=== PATIENT | female | born 1930 | race Caucasian/White ===

== ENCOUNTER 2016-04-16 20:04 | Emergency (ER) | payer MEDICARE ==
[~2016-04-16] VITALS: Ht 157.5 cm; Wt 168.0 kg
[2016-04-16] MEDS ORDERED: fentaNYL 100 MCG/2 ML VIAL IM ONE ×2 (20:20→22:20)
[2016-04-16] MEDS ORDERED: ED- HYDROcodone/ACETAMINOPHEN 5MG/325MG (NORCO) 6 TABLETS/BTL PO ONE (21:45)
--- NOTE | 2016-04-16 22:30 | NUR ---
ATTEMPTED TO DC PT AFTER SLING APPLICATION. PT C/O LEFT LEG CRAMPING ANF RT ARM PAIN. PT TOOK ONE NORCO FROM TOGO BOTTLE. PT REQUESTING SOMETHING MORE FOR PAIN RELIEF BEFORE DC. TALKED WITH PT. PLAN IS TO GIVE ANOTHER IM ANALGESIC.
--- NOTE | 2016-04-16 22:37 | NUR ---
PT AMBULATE FROM RM 7 TO TREATMENT ROOM TO SIT IN CHAIR. IM INJECTION GIVEN. FRIEND SITTING WITH PT.
--- NOTE | 2016-04-16 23:00 | NUR ---
PT FELT READY FOR DC. PT AMBULATED TO AMBULANCE BAY AND GOT INTO CAR WITHOUT DIFFICULTY. FRIENDS WILL FOLLOW PT AND HOME AND HELP GET HER INTO THE HOUSE. PT REPORTED FEELING BETTER, AND NO C/O LEG SPASM AT TIME OF DC.
[2016-04-16 23:13] VITALS: BP 175/84
== END 2016-04-16 23:03 | disposition home or self-care (01) ==
LOC: ED 20:07
DX: S42.291A Other displaced fracture of upper end of right humerus, initial encounter for closed fracture (principal); W01.10XA Fall on same level from slipping, tripping and stumbling with subsequent striking against unspecified object, initial encounter; Y92.009 Unspecified place in unspecified non-institutional (private) residence as the place of occurrence of the external cause
CPT/HCPCS: 73060; 96372; 99283; A9270; J3010

== ENCOUNTER → 2016-04-16 | Outpatient (CLI) | payer MEDICARE | LOC: EMS 19:50 | PROVIDERS: ATTEND Family Medicine | DX: M79.621 Pain in right upper arm (principal); W01.0XXA Fall on same level from slipping, tripping and stumbling without subsequent striking against object, initial encounter; Y92.009 Unspecified place in unspecified non-institutional (private) residence as the place of occurrence of the external cause ==

== ENCOUNTER → 2016-05-04 | Outpatient (CLI) | payer MEDICARE | LOC: RAD 12:57 | PROVIDERS: ATTEND Family Medicine | DX: S42.291D Other displaced fracture of upper end of right humerus, subsequent encounter for fracture with routine healing (principal); X58.XXXD Exposure to other specified factors, subsequent encounter | CPT/HCPCS: 73060 ==

== ENCOUNTER → 2016-07-02 | Outpatient (CLI) | payer MEDICARE ==
[~2016-07-02] MED LIST: AC325T PO; BUME1TAB4 PO; CYAN50TA PO; DONE5TAB30 PO; HYDR-3702 PO; HYDR-700 PO; LEVO100T PO; PSYL1CAP3 PO
--- NOTE | 2016-07-02 15:31 | Diagnostic Imaging Report ---
INDICATION: Followup with humeral neck fracture. COMPARISON: 05/04/2016. FINDINGS: The mildly impacted and laterally displaced femoral neck fracture is unchanged in position. There has been progressive periosteal and endosteal callus formation. Femoral head appear smooth with good articulation with the glenoid. AC joint remains in good alignment. IMPRESSION: Healing femoral neck fracture as described with overall alignment unchanged since previous exam. Dictated by: Dictated on workstation # [id number]
== END ==
LOC: RAD 13:50
PROVIDERS: ATTEND Family Medicine
DX: S42.291D Other displaced fracture of upper end of right humerus, subsequent encounter for fracture with routine healing (principal); X58.XXXD Exposure to other specified factors, subsequent encounter
CPT/HCPCS: 73060